=== PATIENT | male | born 1940 | race Caucasian/White ===

== ENCOUNTER 2020-08-30 01:01 | Emergency (ER) | payer OTHER ==
[~2020-08-30 01:01] MED LIST: CARDIZEM CD120 MG PO; FLOMAX0.4 MG PO; NORCO 5-325 TA1 EACH PO; REVATIO 20 MG T20 MG PO; ZOFRAN ODT 4 MG4 MG PO
== END 2020-08-30 05:37 | disposition home or self-care (01) ==
LOC: ER1 01:01
DX: R09.89 Other specified symptoms and signs involving the circulatory and respiratory systems (principal); M50.30 Other cervical disc degeneration, unspecified cervical region; M48.02 Spinal stenosis, cervical region; Z87.442 Personal history of urinary calculi
CPT/HCPCS: 70490; 71046; 99284